=== PATIENT | male | born 1960 | race Caucasian/White ===

== ENCOUNTER 2017-08-31 12:32 | Observation (INO) ==
[2017-09-01 16:31] VITALS: BP 132/78
== END 2017-09-01 17:59 | disposition home or self-care (01) ==
LOC: N.EDINP 12:32 → N.ED 12:32 → N.TELEN 15:19
PROVIDERS: ADMIT Internal Medicine Interventional Cardiology; ATTEND Internal Medicine Interventional Cardiology
PROC: CLCCHCL (ICD-10-PCS; 2017-08-31 15:15)